=== PATIENT | female | born 1950 ===

== ENCOUNTER 2017-07-11 08:14 | Outpatient (CLI) | payer OTHER | END 2017-07-11 08:16 | disposition home or self-care (01) | LOC: SONOGRAMA 08:14 | DX: E04.2 Nontoxic multinodular goiter (principal) ==

== ENCOUNTER 2020-04-21 07:53 | Outpatient (CLI) | payer OTHER | END 2020-04-21 07:56 | disposition home or self-care (01) | LOC: SONOGRAMA 07:53 | PROVIDERS: ATTEND Pathology Anatomic Pathology & Clinical Pathology | DX: D34 Benign neoplasm of thyroid gland (principal); E06.3 Autoimmune thyroiditis; E04.2 Nontoxic multinodular goiter ==